=== PATIENT | female | born 1955 | race African-American/Black ===

== ENCOUNTER 2022-07-22 12:11 | Emergency (ER) | payer MEDICARE ==
[~2022-07-22] VITALS: Ht 167.6 cm; Wt 77.0 kg
[2022-07-22 12:44] LABS: BASOPHILS % 0.6 % (0.0-2.0); HEMATOCRIT. 37.6 % (36.0-48.0); HEMOGLOBIN. 12.1 g/dL (12.0-16.0); MEAN CORPUSCULAR HEMOGLOBIN 30.2 pg (28.0-32.0); MEAN CORPUSCULAR VOLUME 93.9 fL (81.0-99.0); MEAN PLATELET VOLUME 7.4 fl (7.4-10.4); MONOCYTES % 8.4 % (2.0-8.0); PLATELET 335 x1000/uL (130-400); RED CELL DISTRIBUTION WIDTH 15.2 % (11.6-14.6)
[2022-07-22] MEDS ORDERED: IPRATROPIUM/ALBUTEROL 0.5-3(2.5)MG/3ML NEB HHN ONE ×2 (12:45→13:30)
[2022-07-22] MEDS ORDERED: METHYLPREDNISOLONE SOD SUCC 125 MG/2 ML VIAL IV ONE (12:45)
[2022-07-22 12:52] LABS: CHLORIDE 104 mEq/L (98-107)
[2022-07-22 20:56] VITALS: BP 161/65
== END 2022-07-22 21:13 | disposition short-term general hospital (02) ==
LOC: ER 12:11 → CANBEDREQ 21:51
DX: I10 Essential (primary) hypertension (principal); E78.00 Pure hypercholesterolemia, unspecified; E11.9 Type 2 diabetes mellitus without complications; R07.89 Other chest pain
CPT/HCPCS: 36415; 71045; 80053; 83880; 84484; 85025; 93005; 94640; 99285; J2930